=== PATIENT | female | born 1980 | race Two or more races ===

== ENCOUNTER 2018-10-16 20:00 | Emergency (ER) | payer OTHER ==
[~2018-10-16] VITALS: Ht 157.5 cm; Wt 63.5 kg
[~2018-10-16 20:00] MED LIST: ACETAMINOPHEN-1 EAC2 PO; IRON 100 PLUS1 EACH PO; TYLENOL-CODEINE1 TAB PO; [UNRECOGNIZED DRUG - OTHER] TP
== END 2018-10-16 21:10 | disposition home or self-care (01) ==
LOC: ER 20:00
DX: M54.5 Low back pain (principal)

== ENCOUNTER 2022-01-10 18:03 | Emergency (ER) | payer OTHER ==
[~2022-01-10] VITALS: Ht 157.5 cm; Wt 72.6 kg
== END 2022-01-10 20:09 | disposition home or self-care (01) ==
LOC: ER 18:03
DX: B86 Scabies (principal)